=== PATIENT | male | born 1990 | race Caucasian/White ===

== ENCOUNTER 2017-08-26 12:17 | Emergency (ER) | payer SELFPAY ==
[~2017-08-26] VITALS: Ht 172.7 cm; Wt 66.0 kg
[2017-08-26 12:19] VITALS: BP 148/82
== END 2017-08-26 13:11 | disposition left against medical advice (07) ==
LOC: ED 13:05
DX: R52 Pain, unspecified (principal); Z53.21 Procedure and treatment not carried out due to patient leaving prior to being seen by health care provider

== ENCOUNTER 2019-12-04 13:40 | Emergency (ER) | payer SELFPAY ==
[~2019-12-04] VITALS: Ht 165.1 cm; Wt 67.2 kg
--- NOTE | 2019-12-04 14:06 | NUR ---
ECG OBTAINED IN TRIAGE
--- NOTE | 2019-12-04 15:26 | NUR ---
PROGRAM PLANNER: PT TO ROOM FROM [facility].
--- NOTE | 2019-12-04 15:33 | NUR ---
pt to ed for chronic episodes of sob, occuring more frequently for unknown amount of time. pt also reports intermittent tingling in left fingers, workse upon waking up, and intermittent muscle spasms x10 years. pt conencted to monitors. vss. no needs expressed. call light in reach. awaiitng edmd assessment.
--- NOTE | 2019-12-04 15:41 | NUR ---
pt reports no s/s at this time.
[2019-12-04 17:36] VITALS: BP 121/59
--- NOTE | 2019-12-04 17:36 | NUR ---
pt resting in room. vss. no needs expressed. call light within reach. awaiting lab results.
[2019-12-04 17:49] LABS: BASOPHILS # (AUTO) 0.03 x10^3/uL (0-0.1); BASOPHILS % (AUTO) 0 % (0-1); EOSINOPHILS # (AUTO) 0.19 x10^3/uL (0-0.4); EOSINOPHILS % (AUTO) 2 % (1-7); LYMPHOCYTES # (AUTO) 2.96 x10^3/uL (1-3.4); LYMPHOCYTES % (AUTO) 31 % (22-44); MD NO; MEAN CORPUSCULAR HEMOGLOBIN 31.9 pg (27.5-34.5); MEAN CORPUSCULAR HGB CONC 33.2 g/dL (33.2-36.2); MEAN CORPUSCULAR VOLUME 95.9 fL (81-97); MONOCYTES # (AUTO) 0.58 x10^3/uL (0.2-0.8); MONOCYTES % (AUTO) 6 % (2-9); NEUTROPHILS # (AUTO) 5.85 x10^3/uL (1.8-6.8); NEUTROPHILS % (AUTO) 61 % (42-75); PLATELET COUNT 215 x10^3/uL (130-400); RED BLOOD COUNT 5.02 x10^6/uL (4.38-5.82); RED CELL DISTRIBUTION WIDTH 13.7 % (9.4-14.8)
[2019-12-04 17:51] LABS: ALBUMIN 4.4 g/dL (3.4-5.0); ANION GAP 6 mmol/L (5-15); CALCIUM 9.5 mg/dL (8.5-10.1); CHLORIDE 107 mmol/L (98-107); CREATININE 0.95 mg/dL (0.7-1.3)
[2019-12-04 17:55] LABS: TROPONIN I < 0.015 ng/mL (0.000-0.045)
--- NOTE | 2019-12-04 20:05 | NUR ---
pt left prior to being given dc paperwork.
== END 2019-12-04 20:06 ==
LOC: ED 17:25
DX: R06.4 Hyperventilation (principal); R06.00 Dyspnea, unspecified; F41.1 Generalized anxiety disorder; R94.31 Abnormal electrocardiogram [ECG] [EKG]
CPT/HCPCS: 36415; 71045; 80048; 82040; 83605; 84484; 85025; 93005; 99285